=== PATIENT | female | born 1980 | race Caucasian/White ===

== ENCOUNTER 2017-08-05 17:32 | Emergency (ER) | payer MEDICAID | END 2017-08-05 18:14 | disposition home or self-care (01) | LOC: E/R 18:14 | DX: J02.9 Acute pharyngitis, unspecified (principal) | CPT/HCPCS: 99283; Z7502 ==

== ENCOUNTER 2017-09-06 03:38 | Inpatient (IN) | payer MEDICAID ==
[2017-09-06 04:41] LABS: RUPTURE FETAL MEMBRANES POSITIVE (NEGATIVE)
[2017-09-06] MEDS ORDERED: LIDOCAINE 1% (MPF) 30 ML INJ INJ (06:00)
[2017-09-06] MEDS ORDERED: IBUPROFEN 600 MG TAB PO (06:00)
[2017-09-06] MEDS ORDERED: BUTORPHANOL 2 MG INJ IV (06:00)
[2017-09-06] MEDS ORDERED: OXYTOCIN 30 UNITS/LR 500 ML IV ×3 (06:00→22:30)
[2017-09-06 06:08] LABS: ADD MAN DIFF? NO
[2017-09-06 06:15] LABS: BASOPHILS % 0.3 % (0.0-2.0); EOSINOPHILS # 0.1 10^3/ul (0.0-0.5); EOSINOPHILS % 1.5 % (0.0-7.0); HEMATOCRIT 36.8 % (37.0-47.0); HEMOGLOBIN 12.3 g/dl (12.0-16.0); LYMPHOCYTES # 1.8 10^3/ul (0.8-2.9); LYMPHOCYTES % 19.3 % (15.0-51.0); MEAN CORPUSCULAR HEMOGLOBIN 30.8 pg (29.0-33.0); MEAN CORPUSCULAR HGB CONC 33.4 g/dl (32.0-37.0); MEAN CORPUSCULAR VOLUME 92.2 fl (82.0-101.0); MEAN PLATELET VOLUME 11.3 fl (7.4-10.4); MONOCYTE # 0.7 10^3/ul (0.3-0.9); MONOCYTES % 7.9 % (0.0-11.0); NEUTROPHIL # 6.5 10^3/ul (1.6-7.5); NEUTROPHILS % 70.5 % (39.0-77.0); PLATELET COUNT 188 10^3/UL (140-415); RED BLOOD COUNT 3.99 10^6/ul (4.20-5.40); RED CELL DISTRIBUTION WIDTH 13.8 % (11.5-14.5)
[2017-09-06 06:15] LABS: WHITE BLOOD COUNT 9.2 10^3/ul (4.8-10.8)
[2017-09-06 06:34] LABS: INR 0.93; PROTIME 12.6 Sec (11.9-14.9)
[2017-09-06] MEDS: AMPICILLIN 2 GM/NS (PMX) 100 ML IV (06:46)
[2017-09-06] MEDS: LACTATED RINGER'S 1,000 ML IV ×2 (06:46→14:55)
[2017-09-06 07:06] LABS: HEPATITIS B SURFACE ANTIGEN NEGATIVE (NEGATIVE)
[2017-09-06 10:17] LABS: AMPHETAMINE/METHAMPHETAMINE Negative (NEGATIVE); BARBITURATES Negative (NEGATIVE); BENZODIAZEPINES Negative (NEGATIVE); CANNABINOIDS Negative (NEGATIVE); COCAINE Negative (NEGATIVE); OPIATES Negative (NEGATIVE)
[2017-09-06] MEDS: AMPICILLIN 1 GM/NS (PMX) 50 ML IV ×3 (12:11→18:30)
[2017-09-06] MEDS ORDERED: CITRIC ACID/SODIUM CITRATE 15 ML CUP (14:32)
[2017-09-06] MEDS ORDERED: ONDANSETRON 4 MG INJ (14:33)
[2017-09-06] MEDS ORDERED: CEFAZOLIN 2 GM/50 ML (PMX) 50 ML IVPB (14:34)
[2017-09-06] MEDS: CITRIC ACID/SODIUM CITRATE 15 ML CUP PO (16:40)
[2017-09-06] MEDS: ONDANSETRON 4 MG INJ IV (16:40)
[2017-09-06] MEDS ORDERED: FENTAnyl 50 MCG/ML VIAL (16:59)
[2017-09-06] MEDS ORDERED: morphine SULFATE/PF (10 MG/10 ML) INJ (16:59)
[2017-09-06] MEDS ORDERED: PHENYLephrine (100 MCG/ML) 5ML SYG (16:59)
[2017-09-06] MEDS ORDERED: OXYTOCIN 10 UNIT INJ (17:00)
[2017-09-06] MEDS ORDERED: METOCLOPRAMIDE 10 MG INJ (17:00)
[2017-09-06] MEDS: OXYTOCIN 30 UNITS/LR 500 ML IV ×3 (18:15→21:49)
[2017-09-06] MEDS: METHYLERGONOVINE 0.2 MG INJ IM (18:53)
[2017-09-06] MEDS: CARBOPROST 250 MCG INJ IM (18:56)
[2017-09-06 18:59] LABS: RAPID PLASMA REAGIN NONREACTIVE (NR)
[2017-09-06] MEDS: MISOPROSTOL 200 MCG TAB PR (18:59)
[2017-09-06] MEDS: CEFAZOLIN 2 GM/50 ML (PMX) 50 ML IV (19:52)
[2017-09-06] MEDS ORDERED: HYDROmorphONE (0.2 MG/ML) 10ML SYG IV ×3 (22:00)
[2017-09-06] MEDS ORDERED: hydrALAzine 20 MG INJ IV (22:00)
[2017-09-06] MEDS ORDERED: FENTAnyl 50 MCG/ML VIAL IV ×3 (22:00)
[2017-09-06] MEDS ORDERED: EPHEDrine SULFATE 50 MG/5 ML SYG IV (22:00)
[2017-09-06] MEDS ORDERED: ALBUTEROL 0.083% (NEB) 2.5 MG/3 ML AMP HHN (22:00)
[2017-09-06] MEDS ORDERED: IPRATROPIUM (NEB) 0.5 MG/2.5 ML AMP HHN (22:00)
[2017-09-06] MEDS ORDERED: LABETALOL HCL 20MG INJ IV (22:00)
[2017-09-06] MEDS ORDERED: morphine 2 MG INJ IV ×2 (22:00)
[2017-09-06] MEDS ORDERED: DIPHENHYDRAMINE 50 MG INJ IV ×2 (22:00)
[2017-09-06] MEDS ORDERED: ONDANSETRON 4 MG INJ IV ×2 (22:00)
[2017-09-06] MEDS ORDERED: MIDAZOLAM 1 MG/ML 2 ML INJ IV (22:00)
[2017-09-06] MEDS ORDERED: MEPERIDINE 25 MG INJ IV (22:00)
[2017-09-06] MEDS ORDERED: NALBUPHINE HCL (10 MG/1 ML) INJ IV (22:00)
[2017-09-06] MEDS ORDERED: TRIMETHOBENZAMIDE 100 MG/ML VIAL IM ×2 (22:00)
[2017-09-06] MEDS ORDERED: NALOXONE (0.4 MG/ML) INJ IV (22:00)
[2017-09-06] MEDS ORDERED: OXYCODONE/ACETAMINOPHEN (5/325) TAB PO ×2 (22:00)
[2017-09-06] MEDS ORDERED: MISOPROSTOL 200 MCG TAB PR (22:30)
[2017-09-06] MEDS ORDERED: NA PHOSPHATE/BIPHOS 133 ML ENEMA PR (22:30)
[2017-09-06] MEDS ORDERED: METHYLERGONOVINE 0.2 MG INJ IM (22:30)
[2017-09-06] MEDS ORDERED: CARBOPROST 250 MCG INJ IM (22:30)
[2017-09-07] MEDS: LANOLIN 7 GM TUBE TOP (00:52)
[2017-09-07] MEDS: CLINDAMYCIN 300 MG CAP PO ×5 (00:52→23:33)
[2017-09-07] MEDS: LACTATED RINGER'S 1,000 ML IV ×4 (00:52→22:19)
[2017-09-07] MEDS: CEFAZOLIN 2 GM/50 ML (PMX) 50 ML IV ×3 (00:56→13:34)
[2017-09-07] MEDS: KETOROLAC 30 MG INJ IV ×2 (06:33→13:34)
[2017-09-07 08:26] LABS: ADD MAN DIFF? NO
[2017-09-07 08:34] LABS: BASOPHILS % 0.2 % (0.0-2.0); EOSINOPHILS # 0.1 10^3/ul (0.0-0.5); EOSINOPHILS % 0.5 % (0.0-7.0); HEMATOCRIT 28.6 % (37.0-47.0); HEMOGLOBIN 9.7 g/dl (12.0-16.0); LYMPHOCYTES # 1.4 10^3/ul (0.8-2.9); LYMPHOCYTES % 10.3 % (15.0-51.0); MEAN CORPUSCULAR HEMOGLOBIN 31.5 pg (29.0-33.0); MEAN CORPUSCULAR HGB CONC 33.9 g/dl (32.0-37.0); MEAN CORPUSCULAR VOLUME 92.9 fl (82.0-101.0); MONOCYTES % 7.6 % (0.0-11.0); NEUTROPHIL # 10.9 10^3/ul (1.6-7.5); NEUTROPHILS % 80.9 % (39.0-77.0); PLATELET COUNT 165 10^3/UL (140-415); RED BLOOD COUNT 3.08 10^6/ul (4.20-5.40); RED CELL DISTRIBUTION WIDTH 13.8 % (11.5-14.5)
[2017-09-07 08:34] LABS: WHITE BLOOD COUNT 13.5 10^3/ul (4.8-10.8)
[2017-09-07] MEDS: FLUTICASONE 0.05% 16 GM NAS SPRAY NASAL (09:00)
[2017-09-07] MEDS: SENNA/DOCUSATE NA (8.6MG/50MG) TAB PO ×2 (09:05→21:00)
[2017-09-07] MEDS: BISACODYL 10 MG SUPP PR (11:38)
[2017-09-07] MEDS ORDERED: OXYCODONE/ACETAMINOPHEN (5/325) TAB PO (16:58)
[2017-09-07] MEDS ORDERED: HYDROCODONE/APAP (5/325) TAB PO (16:58)
[2017-09-07] MEDS: IBUPROFEN 800 MG TAB PO (22:19)
[2017-09-07] MEDS: CEFAZOLIN 2 GM/50 ML (PMX) 50 ML IVPB (22:19)
[2017-09-08] MEDS: CEFAZOLIN 2 GM/50 ML (PMX) 50 ML IVPB ×2 (05:36→13:30)
[2017-09-08] MEDS: CLINDAMYCIN 300 MG CAP PO ×3 (05:36→17:21)
[2017-09-08] MEDS: IBUPROFEN 800 MG TAB PO ×3 (05:36→22:03)
[2017-09-08] MEDS: LACTATED RINGER'S 1,000 ML IV ×2 (06:26→14:26)
[2017-09-08] MEDS: FLUTICASONE 0.05% 16 GM NAS SPRAY NASAL (09:00)
[2017-09-08] MEDS: SENNA/DOCUSATE NA (8.6MG/50MG) TAB PO ×2 (09:34→22:02)
[2017-09-08 11:10] LABS: ADD MAN DIFF? NO
[2017-09-08 11:14] LABS: BASOPHILS % 0.2 % (0.0-2.0); EOSINOPHILS # 0.2 10^3/ul (0.0-0.5); EOSINOPHILS % 1.2 % (0.0-7.0); HEMATOCRIT 30.2 % (37.0-47.0); LYMPHOCYTES # 1.7 10^3/ul (0.8-2.9); LYMPHOCYTES % 13.5 % (15.0-51.0); MEAN CORPUSCULAR HEMOGLOBIN 31.1 pg (29.0-33.0); MEAN CORPUSCULAR HGB CONC 33.1 g/dl (32.0-37.0); MEAN CORPUSCULAR VOLUME 93.8 fl (82.0-101.0); MEAN PLATELET VOLUME 11.4 fl (7.4-10.4); MONOCYTE # 0.9 10^3/ul (0.3-0.9); MONOCYTES % 7.4 % (0.0-11.0); NEUTROPHIL # 9.6 10^3/ul (1.6-7.5); NEUTROPHILS % 77.2 % (39.0-77.0); PLATELET COUNT 184 10^3/UL (140-415); RED BLOOD COUNT 3.22 10^6/ul (4.20-5.40); RED CELL DISTRIBUTION WIDTH 14.2 % (11.5-14.5)
[2017-09-08 11:14] LABS: WHITE BLOOD COUNT 12.4 10^3/ul (4.8-10.8)
[2017-09-09] MEDS: CLINDAMYCIN 300 MG CAP PO ×3 (00:10→12:56)
[2017-09-09] MEDS: IBUPROFEN 800 MG TAB PO ×2 (05:38→14:59)
[2017-09-09] MEDS: FLUTICASONE 0.05% 16 GM NAS SPRAY NASAL (09:00)
[2017-09-09] MEDS: SENNA/DOCUSATE NA (8.6MG/50MG) TAB PO (09:23)
[2017-09-09] MEDS: DIPHTH/TET/ACEL PERTUSS (ADULT) 0.5 ML VIAL IM* (09:46)
[2017-09-09] MEDS: MEASLES,MUMPS,RUBELLA VACCINE INJ SC* (09:48)
== END 2017-09-09 17:12 | disposition home or self-care (01) | DRG 766 ==
LOC: OBT 03:38 → L-D 03:40 → OBT 05:21 → L-D 05:22 → PP1 21:30
PROVIDERS: Obstetrics & Gynecology
PROC: 10D00Z1 Extraction of Products of Conception, Low, Open Approach (ICD-10-PCS; principal; 2017-09-06 17:00)
PROC: 3E033VJ Introduction of Other Hormone into Peripheral Vein, Percutaneous Approach (ICD-10-PCS; 2017-09-06 17:00)
DX: O34.211 Maternal care for low transverse scar from previous cesarean delivery (principal); Z37.0 Single live birth; Z3A.39 39 weeks gestation of pregnancy
CPT/HCPCS: 76815; 76818; 80307; 84112; 85025; 85610; 85730; 86592; 86850; 86900; 86901; 86920; 87340; 94760; 99464

== ENCOUNTER 2017-11-13 16:45 | Emergency (ER) | payer MEDICAID | END 2017-11-13 19:40 | disposition home or self-care (01) | LOC: E/R 16:45 | DX: B30.9 Viral conjunctivitis, unspecified (principal) | CPT/HCPCS: 99283; Z7502 ==

== ENCOUNTER 2018-12-26 12:29 | Emergency (ER) | payer MEDICAID | END 2018-12-26 15:02 | disposition home or self-care (01) | LOC: FTE 12:29 | DX: J06.9 Acute upper respiratory infection, unspecified (principal) | CPT/HCPCS: 99282; Z7502 ==